=== PATIENT | female | born 1990 | race Caucasian/White ===

== ENCOUNTER 2024-04-25 10:18 | Emergency (ER) | payer BC ==
[~2024-04-25] VITALS: Ht 170.2 cm; Wt 93.2 kg
[2024-04-25 11:32] LABS: HEMATOCRIT 37.6 % (36.0-47.0); HEMOGLOBIN 12.4 g/dl (12.0-15.5); PLATELET COUNT, AUTOMATED 192 10^3/uL (150-450); WHITE BLOOD COUNT 7.9 10^3/uL (4.0-10.0)
[2024-04-25 11:52] LABS: HCG, SERUM QUALITATIVE NEGATIVE (NEGATIVE)
[2024-04-25 11:53] LABS: LIPASE 25 U/L (12-53)
[2024-04-25 11:55] LABS: ALBUMIN 3.9 G/DL (3.2-5.2); ALKALINE PHOSPHATASE 88 U/L (46-116); ALT/SGPT 27 U/L (7.0-40); AST/SGOT 21 U/L (<34); BILIRUBIN,DIRECT 0.2 MG/DL (<0.4); BILIRUBIN,TOTAL 0.6 MG/DL (0.3-1.2); BLOOD UREA NITROGEN 6 MG/DL (9-23); CALCIUM LEVEL 9.8 MG/DL (8.5-10.1); CARBON DIOXIDE LEVEL 25 MMOL/L (20-31); CHLORIDE LEVEL 104 MMOL/L (98-107); CREATININE FOR GFR 0.62 MG/DL (0.55-1.30); GLOMERULAR FILTRATION RATE > 60.0 (>60); GLUCOSE, FASTING 101 MG/DL (60-100); POTASSIUM SERUM 3.9 MMOL/L (3.5-5.1); SODIUM LEVEL 135 MMOL/L (136-145); TOTAL PROTEIN 7.3 G/DL (5.7-8.2)
[2024-04-25 12:08] LABS: EOSINOPHILS 2 % (0-3); LYMPHOCYTES 21 % (16-44); MONOCYTES 7 % (0-5); NEUTROPHILS 70 % (28-66); PLATELET ESTIMATE NORMAL (NORMAL); POLYCHROMASIA 1+
[2024-04-25] MEDS: NS 1,000 ML IV ONE (12:29)
[2024-04-25] MEDS: ONDANSETRON 4MG 2ML VIAL IV ONE (12:29)
[2024-04-25] MEDS: fentaNYL 100 MCG/2 ML INJECTION IV ONE (12:30)
[2024-04-25] MEDS ORDERED: ISOVUE-370 76% 100ML VIAL As Ordered ONE (12:39)
[2024-04-25] MEDS: PANTOPRAZOLE 40MG VIAL IV ONE (14:17)
[2024-04-25] MEDS ORDERED: fentaNYL 100 MCG/2 ML INJECTION IV ONE (14:40)
[2024-04-25] MEDS: MAALOX 30 ML SUSP *UDC PO ONE (16:01)
[2024-04-25] MEDS: LIDOCAINE VISCOUS 2% SOLN 15ML UDC PO ONE (16:01)
[2024-04-25] MEDS ORDERED: OMEP-173 PO (16:23)
[2024-04-25 16:53] VITALS: BP 139/84; TEMP 97.9; O2SAT 97
== END 2024-04-25 17:04 | disposition home or self-care (01) ==
LOC: M ED 10:18
DX: K21.9 Gastro-esophageal reflux disease without esophagitis (principal); D73.5 Infarction of spleen; R16.0 Hepatomegaly, not elsewhere classified; T83.32XA Displacement of intrauterine contraceptive device, initial encounter; E03.9 Hypothyroidism, unspecified
CPT/HCPCS: 74177; 80048; 80076; 83690; 84703; 85025; 93005; 96374; 96375; 96376; 99284; J2405; J2470; J3010; Q9967